=== PATIENT | female | born 1945 | race Caucasian/White ===

== ENCOUNTER 2017-09-15 20:58 | Emergency (ER) | payer MEDICARE, OTHER ==
[~2017-09-15] VITALS: Ht 165.1 cm; Wt 56.7 kg
[~2017-09-15 20:58] MED LIST: AMLO1CAP5 PO; ASPI-605 PO; ATEN-170 PO; ATOR20TA PO; DENO60DI SQ; EVOL140S SQ; LORA-259 PO; NITR0.4T48 SL
--- NOTE | 2017-09-15 21:00 | NUR ---
"MY LT LEG IS WEAK AND SHAKING; MY BLOOD PRESSURE WAS HIGH. TOOK CLONIDINE 0.1MG 45MINUTES AGO"
--- NOTE | 2017-09-15 21:39 | NUR ---
PT TAKEN TO CT
--- NOTE | 2017-09-15 22:14 | NUR ---
RAC #20 IV ACCESS. BLOOD SAMPLE COLLECTED SENT TO LAB
[2017-09-15 22:46] LABS: BASOPHILS % (AUTO) 0.1 % (0.0-2.0); HEMATOCRIT 39 % (33-45); HEMOGLOBIN 13.3 g/dL (11.5-14.8); LYMPHOCYTES # (AUTO) 1.7 /CMM (0.8-4.8); LYMPHOCYTES % (AUTO) 7.1 % (20.0-44.0); MEAN CORPUSCULAR HEMOGLOBIN 31 PG (26.0-33.0); MEAN CORPUSCULAR HGB CONC 34 g/dl (31.0-36.0); MEAN CORPUSCULAR VOLUME 90 fL (82-100); MONOCYTES # (AUTO) 0.5 /CMM (0.1-1.30); MONOCYTES % (AUTO) 2.2 % (2.0-12.0); NEUTROPHILS % (AUTO) 90.6 % (43.0-81.0); PLATELET COUNT (AUTO) 504 /CMM (150-450); RDW COEFFICIENT OF VARIATION 13.9 (11.5-15.0); RED BLOOD CELL COUNT(AUTO) 4.32 MIL/uL (4.0-5.2); WHITE BLOOD COUNT (AUTO) 24.3 K/uL (4.3-11.0)
[2017-09-15 22:56] LABS: APPEARANCE,URINE CLEAR (CLEAR); BILIRUBIN,URINE NEGATIVE (NEGATIVE); BLOOD, URINE NEGATIVE Ery/uL (NEGATIVE); COLOR,URINE YELLOW (YELLOW); KETONES,URINE NEGATIVE (NEGATIVE); LEUKOCYTE ESTERASE ,URINE NEGATIVE (NEGATIVE); NITRITE, URINE NEGATIVE (NEGATIVE); PROTEIN,URINE NEGATIVE (NEGATIVE); UGLUCOSE NEGATIVE (NEGATIVE); UROBILINOGEN,URINE 0.2 EU/dL (0.2)
[2017-09-15 22:57] LABS: CALCIUM, SERUM 9.5 mg/dL (8.5-10.1); CARBON DIOXIDE 27 mmol/L (21-32); CHLORIDE 89 mmol/L (98-107); GLUCOSE 117 mg/dL (74-106); SODIUM SERUM 130 mmol/L (136-145); UREA NITROGEN, BLOOD 22 mg/dL (7-18)
[2017-09-15 22:59] LABS: INR 0.92 (0.87-1.13)
[2017-09-15 23:09] LABS: TROPONIN I < 0.017 ng/mL (0.00-0.056)
--- NOTE | 2017-09-15 23:12 | NUR ---
IV removed. Catheter intact and site benign. Pressure and 4x4 applied to site. No bleeding noted.
--- NOTE | 2017-09-15 23:12 | NUR ---
Patient discharged to home in stable condition. Written and verbal after care instructions given. Patient verbalizes understanding of instruction.
[2017-09-15 23:13] VITALS: BP 122/68
[2017-09-15 23:17] LABS: BAND % (MANUAL) 4 % (0.0-5.0); LYMPHOCYTES % (MANUAL) 7 % (16-48); MONOCYTES % (MANUAL) 2 % (0-11.0); NEUTROPHILS % (MANUAL) 87 (42-76)
== END 2017-09-15 23:19 | disposition home or self-care (01) ==
LOC: ER 20:59
DX: I10 Essential (primary) hypertension (principal); G20 Parkinson's disease; E87.1 Hypo-osmolality and hyponatremia; D72.829 Elevated white blood cell count, unspecified; Z79.82 Long term (current) use of aspirin; Z86.73 Personal history of transient ischemic attack (TIA), and cerebral infarction without residual deficits; Z88.8 Allergy status to other drugs, medicaments and biological substances
CPT/HCPCS: 36415; 70450; 71045; 80048; 81001; 82962; 84484; 85025; 85730; 93005; 99285; A4606; 81000-TC; Z7610

== ENCOUNTER 2018-09-30 11:17 | Inpatient (IN) | payer MEDICARE, OTHER ==
[~2018-09-30] VITALS: Ht 149.9 cm; Wt 59.9 kg
--- NOTE | 2018-09-30 11:20 | NUR ---
AAOX3, BIBRA 102 from home c/o lower abdominal pain x 3 days, also c/o right upper back pain. RR is even and unlabored with NAD noted. Skin is warm and dry. Awaiting MD for eval.
[2018-09-30 12:04] LABS: BASOPHILS # (AUTO) 0.1 /CMM (0.0-0.2); BASOPHILS % (AUTO) 0.4 % (0.0-2.0); EOSINOPHILS % (AUTO) 0.3 % (0.0-6.0); HEMATOCRIT 45 % (33-45); HEMOGLOBIN 14.9 g/dL (11.5-14.8); LYMPHOCYTES # (AUTO) 1.9 /CMM (0.8-4.8); LYMPHOCYTES % (AUTO) 8.1 % (20.0-44.0); MEAN CORPUSCULAR HGB CONC 33 g/dl (31.0-36.0); MEAN CORPUSCULAR VOLUME 93 fL (82-100); MONOCYTES # (AUTO) 1.4 /CMM (0.1-1.30); NEUTROPHILS # (AUTO) 19.7 /CMM (1.8-8.9); NEUTROPHILS % (AUTO) 85.2 % (43.0-81.0); PLATELET COUNT (AUTO) 435 /CMM (150-450); RED BLOOD CELL COUNT(AUTO) 4.81 MIL/uL (4.0-5.2); WHITE BLOOD COUNT (AUTO) 23.1 K/uL (4.3-11.0)
[2018-09-30 12:14] LABS: CALCIUM, SERUM 10.3 mg/dL (8.5-10.1); CARBON DIOXIDE 27 mmol/L (21-32); CHLORIDE 97 mmol/L (98-107); GLUCOSE 104 mg/dL (74-106); SODIUM SERUM 134 mmol/L (136-145); UREA NITROGEN, BLOOD 17 mg/dL (7-18)
[2018-09-30 12:19] LABS: ALANINE AMINOTRANSFERASE 11 U/L (12-78); ALBUMIN 3.7 g/dL (3.4-5.0); ALKALINE PHOSPHATASE 76 U/L (46-116); ASPARTATE AMINOTRANSFERASE 12 U/L (15-37); BILIRUBIN,DIRECT 0.1 mg/dL (0.0-0.2); BILIRUBIN,TOTAL 0.6 mg/dL (0.2-1.0); LIPASE 161 U/L (73-393); TOTAL PROTEIN, SERUM 8.5 g/dL (6.4-8.2)
[2018-09-30 12:21] LABS: APPEARANCE,URINE Clear (CLEAR); BILIRUBIN,URINE Negative (NEGATIVE); BLOOD, URINE Small Ery/uL (NEGATIVE); COLOR,URINE Yellow (YELLOW); KETONES,URINE Negative (NEGATIVE); LEUKOCYTE ESTERASE ,URINE Negative (NEGATIVE); NITRITE, URINE Negative (NEGATIVE); PROTEIN,URINE 30 mg/dl (NEGATIVE); UGLUCOSE Negative (NEGATIVE); UROBILINOGEN,URINE 0.2 EU/dL (0.2)
[2018-09-30 12:43] LABS: BACTERIA,URINE None seen /HPF (None Seen); SQUAMOUS EPITHELIAL CELL,UR Rare /HPF (None Seen); WBC,URINE NONE SEEN /HPF (0-3)
[2018-09-30 12:52] LABS: BAND % (MANUAL) 1 % (0.0-5.0); LYMPHOCYTES % (MANUAL) 9 % (16-48); MONOCYTES % (MANUAL) 1 % (0-11.0); NEUTROPHILS % (MANUAL) 89 (42-76)
--- NOTE | 2018-09-30 12:55 | NUR ---
CALLED NURSING SUP. FOR TELE BED
[2018-09-30] MEDS ORDERED: AZIL40TA PO (13:09)
[2018-09-30] MEDS ORDERED: NORT10CA PO (13:09)
[2018-09-30] MEDS ORDERED: IRBE150T28 PO (13:09)
[2018-09-30] MEDS ORDERED: ATOR10TA PO (13:09)
[2018-09-30] MEDS ORDERED: EZET10TA14 PO (13:09)
[2018-09-30] MEDS ORDERED: BUPR-51 PO (13:09)
[2018-09-30] MEDS ORDERED: SPIR25TA PO (13:09)
[2018-09-30] MEDS ORDERED: AMLO5TAB9 PO (13:09)
[2018-09-30] MEDS ORDERED: MELA3TAB PO (13:09)
[2018-09-30] MEDS ORDERED: LIPA1CAP15 PO (13:09)
[2018-09-30] MEDS ORDERED: CLON1TAB12 PO (13:09)
[2018-09-30] MEDS ORDERED: ZOLP10TA6 PO (13:09)
[2018-09-30] MEDS ORDERED: LINA145C PO (13:09)
[2018-09-30] MEDS ORDERED: CLON0.1T PO (13:09)
[2018-09-30] MEDS ORDERED: CARB-93 PO (13:09)
--- NOTE | 2018-09-30 13:43 | NUR ---
REPORT GIVEN TO SOCORRO RN GOING TO RM 113-1 FOR CINTHIA.
[2018-09-30] MEDS ORDERED: METRONIDAZOLE 500MG/ NS 100ML 500 MG in PREMIX 1 EA IV STA (13:57)
[2018-09-30] MEDS ORDERED: CEFTRIAXONE 1 G in IV D5W 50 ML IV STA (13:57)
[2018-09-30] MEDS ORDERED: CEFTRIAXONE 1GM BAG (ER ONLY) 50 ML IV ONE (14:08)
[2018-09-30] MEDS ORDERED: IV NS 0.9% 1,000 ML BAG IV STA (14:10)
[2018-09-30] MEDS ORDERED: MORPHINE SULFATE INJ 4 MG/ML DISP.SYRIN IV STA (14:10)
[2018-09-30] MEDS ORDERED: ONDANSETRON HCL/PF 4 MG/2 ML VIAL IV STA (14:10)
[2018-09-30] MEDS ORDERED: ACETAMINOPHEN 325 MG TABLET PO PRN (14:30)
[2018-09-30] MEDS ORDERED: clonazePAM 1 MG TABLET PO PRN (14:30)
[2018-09-30] MEDS ORDERED: HYDROCODONE/APAP 5/325MG 1 EACH TABLET PO PRN (14:30)
[2018-09-30] MEDS ORDERED: NITROGLYCERIN 0.4 MG/TAB BOTTLE SL PRN (14:30)
[2018-09-30] MEDS ORDERED: CLONIDINE HCL 0.1 MG TABLET PO PRN (14:30)
[2018-09-30] MEDS ORDERED: ZOLPIDEM TARTRATE 5 MG TABLET PO PRN (14:30)
[2018-09-30] MEDS ORDERED: Medication Not On Formulary EA (Denosumab (Prolia) 60 MG) SQ SCH (14:30)
[2018-09-30] MEDS ORDERED: MAGNESIUM HYDROXIDE 30 ML UDC PO PRN (14:30)
[2018-09-30] MEDS ORDERED: MAG HYDROX/AL HYDROX/SIMETH 30 ML UDC PO PRN (14:30)
[2018-09-30] MEDS ORDERED: ONDANSETRON HCL/PF 4 MG/2 ML VIAL IVP PRN (14:30)
[2018-09-30] MEDS ORDERED: Z GUARD REMEDY 2 OZ OINT TP PRN (14:30)
--- NOTE | 2018-09-30 14:30 | NUR ---
MS SET KEY DRIVER NOTES RECEIVED PT FROM ER TO ROOM 113-1 VIA WHEELCHAIR.ALERT.ORIENTED X4,TONGAN SPEAKING.UNDERSTANDS ANGUILLAN.CAN AMBULATE WELL WITH ONE PERSON ASSISTANCE.ON ROOM AIR,TOLERATING WELL.NO SOB AND ACUTE DISTRESS NOTED.IV LINE IS ON RIGHT FA G20,SITE LOOKS CLEAN,DRY AND INTACT.NO INFILTRATION NOTED.VITAL SIGNS CHECKED AND RECORDED.SKIN ASSESSMENT IS DONE AND PICTURE HAS TAKEN.SAFETY IS MAINTAINED AT ALL TIMES.CALL LIGHT IS WITHIN REACH.WILL CONTINUE TO MONITOR THE PT CLOSELY.
[2018-09-30 16:00] VITALS: BP 160/85
[2018-09-30] MEDS: IV NS 0.9% 1,000 ML IV SCH ×2 (16:00→22:39)
[2018-09-30] MEDS: CARBIDOPA/LEVODOPA 25/100 MG 1 UDTAB PO SCH (17:56)
[2018-09-30] MEDS: LIPASE/PROTEASE/AMYLASE 1 EACH CAPSULE.DR PO SCH (17:56)
[2018-09-30] MEDS: ATENOLOL 25 MG TABLET PO SCH (17:56)
--- NOTE | 2018-09-30 18:37 | NUR ---
MS RN CLOSING NOTES PT IS LYING ON BED.ON NPO.AMBULATED WELL WITH ONE PERSON ASSISTANCE.NO SIGNIFICANT CHANGES NOTED IN THE SHIFT.ALL THE DUE MEDS ARE GIVEN.WILL ENDORSE TO NEXT SHIFT RN FOR CINTHIA.
[2018-09-30 20:00] VITALS: BP 129/73
[2018-09-30] MEDS: NORTRIPTYLINE HCL 10 MG CAPSULE PO SCH (21:46)
[2018-09-30] MEDS: ZOLPIDEM TARTRATE 10 MG TABLET PO SCH (21:47)
[2018-09-30] MEDS ORDERED: Medication Not On Formulary EA (Melatonin 3 MG) PO SCH (22:00)
[2018-09-30] MEDS ORDERED: ATORVASTATIN 10 MG TABLET PO SCH (22:00)
[2018-10-01 04:00] VITALS: BP 141/71
[2018-10-01] MEDS: IV NS 0.9% 1,000 ML IV SCH (06:20)
[2018-10-01 07:52] LABS: BASOPHILS % (AUTO) 0.2 % (0.0-2.0); EOSINOPHILS % (AUTO) 0.3 % (0.0-6.0); HEMATOCRIT 40 % (33-45); HEMOGLOBIN 13.2 g/dL (11.5-14.8); LYMPHOCYTES # (AUTO) 1.8 /CMM (0.8-4.8); LYMPHOCYTES % (AUTO) 9.7 % (20.0-44.0); MEAN CORPUSCULAR HGB CONC 33 g/dl (31.0-36.0); MEAN CORPUSCULAR VOLUME 93 fL (82-100); MONOCYTES # (AUTO) 1.1 /CMM (0.1-1.30); NEUTROPHILS # (AUTO) 15.6 /CMM (1.8-8.9); NEUTROPHILS % (AUTO) 83.8 % (43.0-81.0); PLATELET COUNT (AUTO) 348 /CMM (150-450); RED BLOOD CELL COUNT(AUTO) 4.26 MIL/uL (4.0-5.2); WHITE BLOOD COUNT (AUTO) 18.7 K/uL (4.3-11.0)
[2018-10-01 08:00] VITALS: BP 129/70
[2018-10-01] MEDS: LIPASE/PROTEASE/AMYLASE 1 EACH CAPSULE.DR PO SCH ×3 (08:27→18:00)
[2018-10-01] MEDS: ATENOLOL 25 MG TABLET PO SCH ×3 (08:28→17:00)
[2018-10-01] MEDS: CARBIDOPA/LEVODOPA 25/100 MG 1 UDTAB PO SCH ×2 (08:28→17:00)
[2018-10-01 08:30] LABS: CALCIUM, SERUM 8.6 mg/dL (8.5-10.1); CARBON DIOXIDE 23 mmol/L (21-32); CHLORIDE 106 mmol/L (98-107); CREATININE 0.7 mg/dL (0.6-1.3); GLUCOSE 86 mg/dL (74-106); MAGNESIUM 2.2 mg/dL (1.8-2.4); PHOSPHORUS 2.4 mg/dL (2.5-4.9); POTASSIUM 4.1 mmol/L (3.5-5.1); SODIUM SERUM 140 mmol/L (136-145); UREA NITROGEN, BLOOD 12 mg/dL (7-18)
[2018-10-01] MEDS: EZETIMIBE 10 MG TABLET PO SCH ×3 (08:31→21:51)
[2018-10-01] MEDS: SPIRONOLACTONE 25 MG TABLET PO SCH (08:31)
[2018-10-01] MEDS: BUPROPION XL 150 MG TAB.ER.24 PO SCH ×2 (08:31→09:00)
[2018-10-01] MEDS: AMLODIPINE BESYLATE 5 MG TABLET PO SCH (08:33)
[2018-10-01] MEDS: ASPIRIN EC 81 MG TABLET.DR PO SCH ×2 (08:33→09:05)
[2018-10-01] MEDS ORDERED: Medication Not On Formulary EA (Linaclotide (Linzess) 145 MCG) PO SCH (09:00)
[2018-10-01] MEDS ORDERED: IRBESARTAN (150MG) 150 MG TABLET PO SCH (09:00)
[2018-10-01 09:07] LABS: CHOLESTEROL 200 mg/dL (<200); HDL CHOLESTEROL 55 mg/dL (40-60); LDL 129 mg/dL (0-99); TRIGLYCERIDES 84 mg/dL (30-150)
[2018-10-01] MEDS: LOSARTAN POTASSIUM 50 MG TABLET PO SCH (11:33)
[2018-10-01] MEDS ORDERED: K PHOS NEUTRAL 250 MG TABLET PO ONE (12:00)
[2018-10-01 16:00] VITALS: BP 148/80
[2018-10-01] MEDS: IV NS 0.9% 1,000 ML IV PRN (17:21)
--- NOTE | 2018-10-01 19:30 | NUR ---
RN M/S NOTE PATIENT PRESENTS AOX3, SITTING IN CHAIR, ON RA, NO S/SX OF CARDIAC OR RESPIRATORY DISTRESS NOTED, SKIN KEPT CLEAN AND DRY, NPO, PT REFUSING IV PLACEMENT, INSTRUCTED ON RISKS AND BENEFITS, PT INSISTENT ON EATING/DRINKING, INSTRUCTED ON ORDERS, CONTINUES TO NEED REINFORCEMENT ON EDUCATION. SAFETY MAINTAINED AT ALL TIMES, BED IN LOW LOCKED POSITION, CALL LIGHT WITHIN REACH WILL CONTINUE TO MONITOR FOR ANY CHANGES.
[2018-10-01 20:00] VITALS: BP 157/85
--- NOTE | 2018-10-01 20:51 | NUR ---
RN M/S NOTE PT ALLOWED IV REINSERTION #24G PLACED IN LEFT HAND, PATENT FLUSHING WELL, DRESSING SECURED.
[2018-10-01] MEDS: NORTRIPTYLINE HCL 10 MG CAPSULE PO SCH (21:50)
[2018-10-01] MEDS: ZOLPIDEM TARTRATE 10 MG TABLET PO SCH (21:50)
[2018-10-02 04:00] VITALS: BP 160/90
[2018-10-02] MEDS: IV NS 0.9% 1,000 ML IV PRN (05:02)
--- NOTE | 2018-10-02 06:39 | NUR ---
RN M/S NOTE PT BP ELEVATED 177/98 AFTER EXERTION, MESSAGE TO ONCALL CONCERNING ELEVATED BP AND NPO STATUS UNABLE TO GIVE CLONIDINE PRN, GIVEN ORDER FOR LABETOLOL 5MG IV PUSH X1, WHEN RECHECKED AFTER REST FROM EXERTION FROM AMBULATING TO RESTROOM BP 160/90, RN WILL GIVE MEDICATION AND CONTINUE TO MONITOR BP.
[2018-10-02] MEDS ORDERED: LABETALOL HCL IV 100MG VIAL IV ONE (07:00)
[2018-10-02 07:35] LABS: BASOPHILS # (AUTO) 0.1 /CMM (0.0-0.2); BASOPHILS % (AUTO) 0.5 % (0.0-2.0); EOSINOPHILS % (AUTO) 0.2 % (0.0-6.0); HEMATOCRIT 43 % (33-45); HEMOGLOBIN 14.3 g/dL (11.5-14.8); LYMPHOCYTES # (AUTO) 1.7 /CMM (0.8-4.8); MEAN CORPUSCULAR HGB CONC 34 g/dl (31.0-36.0); MEAN CORPUSCULAR VOLUME 92 fL (82-100); MONOCYTES # (AUTO) 0.9 /CMM (0.1-1.30); MONOCYTES % (AUTO) 5.4 % (2.0-12.0); NEUTROPHILS # (AUTO) 14.7 /CMM (1.8-8.9); NEUTROPHILS % (AUTO) 83.9 % (43.0-81.0); PLATELET COUNT (AUTO) 367 /CMM (150-450); RED BLOOD CELL COUNT(AUTO) 4.62 MIL/uL (4.0-5.2); WHITE BLOOD COUNT (AUTO) 17.5 K/uL (4.3-11.0)
[2018-10-02 07:54] LABS: CALCIUM, SERUM 8.6 mg/dL (8.5-10.1); CARBON DIOXIDE 21 mmol/L (21-32); CHLORIDE 106 mmol/L (98-107); CREATININE 0.8 mg/dL (0.6-1.3); GLUCOSE 69 mg/dL (74-106); PHOSPHORUS 2.3 mg/dL (2.5-4.9); SODIUM SERUM 141 mmol/L (136-145); UREA NITROGEN, BLOOD 13 mg/dL (7-18)
--- NOTE | 2018-10-02 07:54 | NUR ---
MS RN OPENING NOTES RECEIVED PATIENT IN STABLE CONDITION. IN NO APPARENT DISTRESS. BEDSIDE RAILS ARE UPX2. BED IS LOCKED AND LOWERED. CALL LIGHT IS WITHIN REACH. IV LINE IS INTACT AND PATENT. WILL CONTINUE TO MONITOR PATIENT.
[2018-10-02 08:00] VITALS: BP 178/99
[2018-10-02] MEDS: LIPASE/PROTEASE/AMYLASE 1 EACH CAPSULE.DR PO SCH ×3 (08:00→17:02)
--- NOTE | 2018-10-02 08:39 | NUR ---
MS NURSE,Left message to answing service re; patient's b/p 178/99 waiting for retirning call back
[2018-10-02] MEDS: ASPIRIN EC 81 MG TABLET.DR PO SCH (09:00)
[2018-10-02] MEDS: CARBIDOPA/LEVODOPA 25/100 MG 1 UDTAB PO SCH ×2 (09:00→17:02)
--- NOTE | 2018-10-02 10:00 | NUR ---
PATIENT'S BP IS 178/99. INFORMED DR. STUBBS. AWAITING ORDERS
[2018-10-02] MEDS: SPIRONOLACTONE 25 MG TABLET PO SCH (11:43)
[2018-10-02] MEDS: AMLODIPINE BESYLATE 5 MG TABLET PO SCH (11:43)
[2018-10-02] MEDS: LOSARTAN POTASSIUM 50 MG TABLET PO SCH (11:43)
[2018-10-02] MEDS: ATENOLOL 25 MG TABLET PO SCH ×2 (11:48→17:03)
--- NOTE | 2018-10-02 12:21 | NUR ---
LABETALOL NON ADMINISTERED AT 0700. SPOKE TO DR STUBBS REGARDING PATIENTS HIGH BLOOD PRESSURE. PATIENT WAS STARTED ON CLEAR LIQUIDS DIET. ADMINISTERED HOME BLOOD PRESSURE MEDICATION.
[2018-10-02] MEDS ORDERED: K PHOS NEUTRAL 250 MG TABLET PO ONE (15:30)
[2018-10-02 16:00] VITALS: BP 154/88
[2018-10-02 16:25] VITALS: BP 154/88
--- NOTE | 2018-10-02 18:42 | NUR ---
MS RN CLOSING NOTES PATIENT IS IN STABLE CONDITION. IN NO APPARENT DISTRESS. BEDSIDE RAILS ARE UPX2. BED IS LOCKED AND LOWERED. CALL LIGHT IS WITHIN REACH. IV LINE IS INTACT AND PATENT. ALL NEEDS WERE MET. WILL ENDORSE CARE TO TYPIST NURSE FOR CINTHIA.
--- NOTE | 2018-10-02 19:10 | NUR ---
RN M/S NOTE PATIENT PRESENTS AOX3, RESTING WITH HOB ELEVATED, ON RA, NO S/SX OF CARDIAC OR RESPIRATORY DISTRESS NOTED, SKIN KEPT CLEAN AND DRY, NPO, LEFT HAND #24G PATENT AND FLUSHING PT REFUSING IV FLUIDS AT THIS TIME, INSTRUCTED ON RISKS AND BENEFITS, CONTINUES TO NEED REINFORCEMENT ON EDUCATION. SAFETY MAINTAINED AT ALL TIMES, BED IN LOW LOCKED POSITION, CALL LIGHT WITHIN REACH WILL CONTINUE TO MONITOR FOR ANY CHANGES.
[2018-10-02 20:00] VITALS: BP 143/73
[2018-10-02] MEDS: CEFTRIAXONE 1 G in IV D5W 50 ML IV SCH (20:08)
[2018-10-02] MEDS: METRONIDAZOLE 500MG/ NS 100ML 500 MG in PREMIX 1 EA IV SCH (21:24)
[2018-10-02] MEDS: EZETIMIBE 10 MG TABLET PO SCH (21:24)
[2018-10-02] MEDS: NORTRIPTYLINE HCL 10 MG CAPSULE PO SCH (21:24)
[2018-10-02] MEDS: ZOLPIDEM TARTRATE 10 MG TABLET PO SCH (21:24)
[2018-10-03 04:00] VITALS: BP 153/83
[2018-10-03] MEDS: METRONIDAZOLE 500MG/ NS 100ML 500 MG in PREMIX 1 EA IV SCH ×3 (05:34→21:33)
--- NOTE | 2018-10-03 07:20 | NUR ---
MS RN OPENING NOTES RECEIVED REPORT FROM PM NURSE. PATIENT IN BED.AXOX4. IN NO APPARENT DISTRESS. NO PAIN NOTED.BEDSIDE RAILS ARE UPX2. BED IS LOCKED AND LOW POSITION. CALL LIGHT IS WITHIN REACH. IV LINE IS INTACT AND PATENT. WILL CONTINUE TO MONITOR .
[2018-10-03 08:00] VITALS: BP 149/87
[2018-10-03] MEDS: CARBIDOPA/LEVODOPA 25/100 MG 1 UDTAB PO SCH ×2 (08:32→18:00)
[2018-10-03] MEDS: SPIRONOLACTONE 25 MG TABLET PO SCH (08:32)
[2018-10-03] MEDS: ASPIRIN EC 81 MG TABLET.DR PO SCH (08:32)
[2018-10-03] MEDS: LIPASE/PROTEASE/AMYLASE 1 EACH CAPSULE.DR PO SCH ×3 (08:32→18:00)
[2018-10-03] MEDS: AMLODIPINE BESYLATE 5 MG TABLET PO SCH (08:34)
[2018-10-03] MEDS: LOSARTAN POTASSIUM 50 MG TABLET PO SCH (08:34)
[2018-10-03] MEDS: ATENOLOL 25 MG TABLET PO SCH ×2 (08:36→18:01)
[2018-10-03] MEDS ORDERED: K PHOS NEUTRAL 250 MG TABLET PO ONE (12:00)
[2018-10-03 16:00] VITALS: BP 136/82
--- NOTE | 2018-10-03 19:30 | NUR ---
MS RN CLOSING NOTES PATIENT IN BED.AXOX4. IN NO APPARENT DISTRESS. NO PAIN NOTED.BEDSIDE RAILS ARE UPX2. BED IS LOCKED AND LOW POSITION. CALL LIGHT IS WITHIN REACH. IV LINE IS INTACT AND PATENT.REFUSED IVF THROUGH OUT SHIFT.EXPLAINED RISK AND BENEFIT.STILL REFUSING.SEEN BY IN THE MORNING.UPDATED ABOUT CONDITION.WILL ENDORSE TO PM NURSE FOR CINTHIA.
--- NOTE | 2018-10-03 19:50 | NUR ---
MS RN NOTE: PATIENT RESTING IN BED, NO ACUTE DISTRESS NOTED. BREATHING EVEN AND UNLABORED, NO SOB NOTED. IV LEFT HAND IN PLACE. PATIENT DENIES ABDOMINAL PAIN, OR NAUSEA/VOMITING AT THIS TIME. BED LOCKED AND IN LOWEST POSITION, CALL LIGHT IN REACH. WILL CONTINUE TO MONITOR.
[2018-10-03 20:00] VITALS: BP 147/76
[2018-10-03] MEDS: CEFTRIAXONE 1 G in IV D5W 50 ML IV SCH (20:55)
[2018-10-03] MEDS: NORTRIPTYLINE HCL 10 MG CAPSULE PO SCH (22:32)
[2018-10-03] MEDS: ZOLPIDEM TARTRATE 10 MG TABLET PO SCH (22:32)
[2018-10-03] MEDS: EZETIMIBE 10 MG TABLET PO SCH (22:32)
--- NOTE | 2018-10-03 22:45 | NUR ---
MS RN NOTE: PATIENT SCHEDULED AMBIEN 10MG 1 TAB ORAL GIVEN PER MD ORDER. WILL CONTINUE TO MONITOR.
[2018-10-04] MEDS: METRONIDAZOLE 500MG/ NS 100ML 500 MG in PREMIX 1 EA IV SCH ×2 (05:12→12:19)
--- NOTE | 2018-10-04 06:15 | NUR ---
MS RN NOTE: PATIENT RESTING IN BED, NO ACUTE DISTRESS NOTED. BREATHING EVEN AND UNLABORED, NO SOB NOTED. IV LEFT HAND IN PLACE. BED LOCKED AND IN LOWEST POSITION, CALL LIGHT IN REACH. WILL ENDORSE TO DAY NURSE TO CONTINUE WITH PLAN OF CARE.
[2018-10-04 06:29] VITALS: BP 134/73
[2018-10-04 07:17] LABS: BASOPHILS % (AUTO) 0.2 % (0.0-2.0); EOSINOPHILS % (AUTO) 0.2 % (0.0-6.0); HEMATOCRIT 41 % (33-45); HEMOGLOBIN 13.8 g/dL (11.5-14.8); LYMPHOCYTES # (AUTO) 2.2 /CMM (0.8-4.8); LYMPHOCYTES % (AUTO) 13.8 % (20.0-44.0); MEAN CORPUSCULAR HGB CONC 34 g/dl (31.0-36.0); MEAN CORPUSCULAR VOLUME 93 fL (82-100); MONOCYTES # (AUTO) 1.5 /CMM (0.1-1.30); MONOCYTES % (AUTO) 9.4 % (2.0-12.0); NEUTROPHILS # (AUTO) 12.1 /CMM (1.8-8.9); NEUTROPHILS % (AUTO) 76.4 % (43.0-81.0); PLATELET COUNT (AUTO) 414 /CMM (150-450); RED BLOOD CELL COUNT(AUTO) 4.45 MIL/uL (4.0-5.2); WHITE BLOOD COUNT (AUTO) 15.9 K/uL (4.3-11.0)
[2018-10-04 07:32] LABS: CALCIUM, SERUM 8.5 mg/dL (8.5-10.1); CARBON DIOXIDE 25 mmol/L (21-32); CHLORIDE 105 mmol/L (98-107); CREATININE 0.8 mg/dL (0.6-1.3); GLUCOSE 102 mg/dL (74-106); PHOSPHORUS 2.2 mg/dL (2.5-4.9); POTASSIUM 3.5 mmol/L (3.5-5.1); SODIUM SERUM 141 mmol/L (136-145); UREA NITROGEN, BLOOD 11 mg/dL (7-18)
[2018-10-04 08:00] VITALS: BP 147/83
[2018-10-04] MEDS: LIPASE/PROTEASE/AMYLASE 1 EACH CAPSULE.DR PO SCH ×2 (08:00→13:00)
[2018-10-04] MEDS: SPIRONOLACTONE 25 MG TABLET PO SCH (09:33)
[2018-10-04] MEDS: LOSARTAN POTASSIUM 50 MG TABLET PO SCH (09:33)
[2018-10-04] MEDS: ASPIRIN EC 81 MG TABLET.DR PO SCH (09:33)
[2018-10-04] MEDS: AMLODIPINE BESYLATE 5 MG TABLET PO SCH (09:34)
[2018-10-04] MEDS: CARBIDOPA/LEVODOPA 25/100 MG 1 UDTAB PO SCH (09:34)
[2018-10-04] MEDS: ATENOLOL 25 MG TABLET PO SCH (09:35)
[2018-10-04 10:00] VITALS: BP 140/68
[2018-10-04] MEDS ORDERED: METR500T PO (11:00)
[2018-10-04] MEDS ORDERED: AMOX500T2 PO (11:00)
[2018-10-04] MEDS ORDERED: NA PHOS,M-B/NA PHOS,DI-BA 1 EA ENEMA RC ONE (11:15)
[2018-10-04] MEDS ORDERED: K PHOS NEUTRAL 250 MG TABLET PO ONE (13:30)
--- NOTE | 2018-10-04 15:30 | NUR ---
gave pt discharge instructions with new RX, gave pt teachings regarding new medication and any side effects that may occur with discharge instructions. no pain, no sob not in distress. picked up by , assisted to personal car via w/c. all needs met.
== END 2018-10-04 15:24 | disposition home or self-care (01) | DRG 392 ==
LOC: ER 11:22 → TELE1 13:14 → MEDSG1 14:47
PROVIDERS: ADMIT Family Medicine; ATTEND Family Medicine
DX: K57.20 Diverticulitis of large intestine with perforation and abscess without bleeding (principal); E87.1 Hypo-osmolality and hyponatremia; I25.10 Atherosclerotic heart disease of native coronary artery without angina pectoris; Z86.73 Personal history of transient ischemic attack (TIA), and cerebral infarction without residual deficits; E83.52 Hypercalcemia; E78.5 Hyperlipidemia, unspecified; E86.1 Hypovolemia; I10 Essential (primary) hypertension; K76.0 Fatty (change of) liver, not elsewhere classified; Z79.82 Long term (current) use of aspirin; Z95.5 Presence of coronary angioplasty implant and graft; D75.1 Secondary polycythemia; D72.829 Elevated white blood cell count, unspecified; G20 Parkinson's disease; F02.80 Dementia in other diseases classified elsewhere, unspecified severity, without behavioral disturbance, psychotic disturbance, mood disturbance, and anxiety
CPT/HCPCS: 36415; 71045-TC; 80048-TC; 80061-TC; 80076-TC; 81000-TC; 83690-TC; 83735-TC; 84100-TC; 85025-TC; 87081-TC; A4216; G0378; J0696; J3490; J7030; J7060

== ENCOUNTER 2018-11-06 20:38 | Inpatient (IN) | payer MEDICARE, OTHER ==
[~2018-11-06] VITALS: Ht 149.9 cm; Wt 58.6 kg
[~2018-11-06 20:38] MED LIST changes: -AMLO1CAP5 PO; +AMLO5TAB9 PO; +AMOX500T2 PO; -ATOR20TA PO; +CARB-93 PO; +CLON0.1T PO; -EVOL140S SQ; +EZET10TA14 PO; +IRBE150T28 PO; +LIPA1CAP15 PO; -LORA-259 PO; +MELA3TAB PO; +METR500T PO; +NORT10CA PO; +SPIR25TA PO; +ZOLP10TA6 PO
--- NOTE | 2018-11-06 20:47 | NUR ---
PT BIBRA FROM HOME FOR EPIGASTRIC PAIN; PT AAOX4, PT AMBULATORY, VSS, NAD NOTED, PENDING MD EDWARDS
[2018-11-06 21:04] LABS: BASOPHILS # (AUTO) 0.1 /CMM (0.0-0.2); BASOPHILS % (AUTO) 0.5 % (0.0-2.0); EOSINOPHILS % (AUTO) 0.4 % (0.0-6.0); HEMATOCRIT 41 % (33-45); HEMOGLOBIN 13.8 g/dL (11.5-14.8); LYMPHOCYTES # (AUTO) 2.6 /CMM (0.8-4.8); LYMPHOCYTES % (AUTO) 18.2 % (20.0-44.0); MEAN CORPUSCULAR HGB CONC 34 g/dl (31.0-36.0); MEAN CORPUSCULAR VOLUME 92 fL (82-100); MONOCYTES # (AUTO) 1.4 /CMM (0.1-1.30); MONOCYTES % (AUTO) 9.9 % (2.0-12.0); NEUTROPHILS # (AUTO) 10.1 /CMM (1.8-8.9); PLATELET COUNT (AUTO) 467 /CMM (150-450); WHITE BLOOD COUNT (AUTO) 14.1 K/uL (4.3-11.0)
[2018-11-06 21:20] LABS: ALANINE AMINOTRANSFERASE 19 U/L (12-78); ALBUMIN 3.6 g/dL (3.4-5.0); ALKALINE PHOSPHATASE 72 U/L (46-116); ASPARTATE AMINOTRANSFERASE 15 U/L (15-37); BILIRUBIN,DIRECT 0.1 mg/dL (0.0-0.2); BILIRUBIN,TOTAL 0.3 mg/dL (0.2-1.0); CALCIUM, SERUM 9.1 mg/dL (8.5-10.1); CARBON DIOXIDE 26 mmol/L (21-32); CHLORIDE 96 mmol/L (98-107); CREATININE 0.8 mg/dL (0.6-1.3); GLUCOSE 107 mg/dL (74-106); LIPASE 193 U/L (73-393); POTASSIUM 4.5 mmol/L (3.5-5.1); SODIUM SERUM 130 mmol/L (136-145); TOTAL PROTEIN, SERUM 7.5 g/dL (6.4-8.2); UREA NITROGEN, BLOOD 14 mg/dL (7-18)
[2018-11-06 21:38] LABS: APPEARANCE,URINE Clear (CLEAR); BILIRUBIN,URINE Negative (NEGATIVE); BLOOD, URINE Trace-intact Ery/uL (NEGATIVE); COLOR,URINE Yellow (YELLOW); KETONES,URINE Negative (NEGATIVE); LEUKOCYTE ESTERASE ,URINE Negative (NEGATIVE); NITRITE, URINE Negative (NEGATIVE); PH,URINE 8.5 (5.0-8.0); PROTEIN,URINE Negative (NEGATIVE); UGLUCOSE Negative (NEGATIVE); UROBILINOGEN,URINE 0.2 EU/dL (0.2)
--- NOTE | 2018-11-06 22:27 | NUR ---
CALLED MA[facility]AD TO HAVE A CT READ
[2018-11-06 23:00] LABS: BACTERIA,URINE None seen /HPF (None Seen); RBC,URINE 0-2 /HPF (0-2); SQUAMOUS EPITHELIAL CELL,UR Few /HPF (None Seen); WBC,URINE 0-2 /HPF (0-3)
[2018-11-06] MEDS ORDERED: PIPERACILLIN /TAZOBACTAM 3.375 G in IV D5W 50 ML IV ONE (23:30)
[2018-11-06] MEDS ORDERED: PIPERACILLIN /TAZOBACTAM 3.375 G VIAL IV ONE (23:31)
--- NOTE | 2018-11-06 23:35 | NUR ---
MS BED 307-1 GIVEN
[2018-11-06] MEDS ORDERED: HYDROMORPHONE 1 MG/1 ML DISP.SYRIN ONE (23:57)
[2018-11-07] MEDS ORDERED: HYDROMORPHONE INJ 0.5 MG/0.5 ML SYRINGE IV PRN
--- NOTE | 2018-11-07 00:39 | NUR ---
CALLED FOR REPORT, NURSE ON BREAK AT THIS TIME, WILL CALL BACK
--- NOTE | 2018-11-07 00:46 | NUR ---
REPORT GIVEN TO TOMMY ESPITIA FOR CINTHIA; PT WILL BE TRANSPORTED TO [facility] VIA W/C
[2018-11-07 00:55] VITALS: BP 133/77
--- NOTE | 2018-11-07 01:00 | NUR ---
MS WHEAT BUYER NOTES Admitted a 72YO female patient for diverticulitis. Patient came to unit via gurney, alert, oriented x 4. Breathing even and unlabored. Not in any distress. No complaints at the moment. IV access on right hand g#22 intact and patent. V/S taken and recorded. Patient denies smoking, drinking and recreational drug use. Skin assessment done, no skin issues. Oriented to call light- placed within easy reach. Bed in lowest, locked position. Will continue to monitor accordingly
[2018-11-07] MEDS ORDERED: ONDANSETRON HCL/PF 4 MG/2 ML VIAL IVP PRN (01:30)
[2018-11-07] MEDS ORDERED: NITROGLYCERIN 0.4 MG/TAB BOTTLE SL PRN (01:30)
[2018-11-07] MEDS ORDERED: MAG HYDROX/AL HYDROX/SIMETH 30 ML UDC PO PRN (01:30)
[2018-11-07] MEDS ORDERED: HYDROCODONE/APAP 5/325MG 1 EACH TABLET PO PRN (01:30)
[2018-11-07] MEDS ORDERED: Medication Not On Formulary EA (Denosumab (Prolia) 60 MG) SQ SCH (01:30)
[2018-11-07] MEDS ORDERED: CLONIDINE HCL 0.1 MG TABLET PO PRN (01:30)
[2018-11-07] MEDS ORDERED: ACETAMINOPHEN 325 MG TABLET PO PRN (01:30)
[2018-11-07] MEDS ORDERED: MAGNESIUM HYDROXIDE 30 ML UDC PO PRN (01:30)
[2018-11-07] MEDS ORDERED: Z GUARD REMEDY 2 OZ OINT TP PRN (01:30)
[2018-11-07] MEDS ORDERED: MORPHINE SULFATE INJ 2 MG/ML DISP.SYRIN IV PRN (01:30)
[2018-11-07] MEDS: IV NS 0.9% 1,000 ML IV PRN (02:13)
[2018-11-07] MEDS ORDERED: PIPERACILLIN /TAZOBACTAM 3.375 G in IV D5W 50 ML IV SCH (06:00)
[2018-11-07 06:26] LABS: BASOPHILS % (AUTO) 0.3 % (0.0-2.0); EOSINOPHILS % (AUTO) 0.3 % (0.0-6.0); HEMATOCRIT 41 % (33-45); HEMOGLOBIN 13.9 g/dL (11.5-14.8); LYMPHOCYTES # (AUTO) 2.3 /CMM (0.8-4.8); LYMPHOCYTES % (AUTO) 16.8 % (20.0-44.0); MEAN CORPUSCULAR HGB CONC 34 g/dl (31.0-36.0); MEAN CORPUSCULAR VOLUME 91 fL (82-100); MONOCYTES # (AUTO) 1.3 /CMM (0.1-1.30); MONOCYTES % (AUTO) 9.7 % (2.0-12.0); NEUTROPHILS # (AUTO) 9.9 /CMM (1.8-8.9); NEUTROPHILS % (AUTO) 72.9 % (43.0-81.0); PLATELET COUNT (AUTO) 491 /CMM (150-450); RED BLOOD CELL COUNT(AUTO) 4.48 MIL/uL (4.0-5.2); WHITE BLOOD COUNT (AUTO) 13.6 K/uL (4.3-11.0)
[2018-11-07 06:49] LABS: CALCIUM, SERUM 9.1 mg/dL (8.5-10.1); CARBON DIOXIDE 25 mmol/L (21-32); CHLORIDE 99 mmol/L (98-107); CREATININE 0.9 mg/dL (0.6-1.3); GLUCOSE 94 mg/dL (74-106); MAGNESIUM 2.6 mg/dL (1.8-2.4); POTASSIUM 4.3 mmol/L (3.5-5.1); SODIUM SERUM 138 mmol/L (136-145); UREA NITROGEN, BLOOD 9 mg/dL (7-18)
--- NOTE | 2018-11-07 07:01 | NUR ---
MS RN CLOSING NOTES Patient in bed, alert, oriented x 4. Breathing even and unlabored. Not in any distress, on room air. Peripheral IV infusing at 75mL/hr. No complaints at this time. All needs attended to. Safety measures in place. Will endorse CINTHIA to oncoming RN
[2018-11-07 07:04] LABS: CHOLESTEROL 233 mg/dL (<200); HDL CHOLESTEROL 59 mg/dL (40-60); LDL 161 mg/dL (0-99); THYROID STIMULATING HORMONE 3.984 uIU/mL (0.358-3.74); TRIGLYCERIDES 105 mg/dL (30-150)
--- NOTE | 2018-11-07 07:30 | NUR ---
RN MS NOTES PT IN BED, AWAKE, ALERT AND ORIENTED, WITH COMPLAINT OF ABDOMINAL PAIN BUT DOES NOT WANT ANY PAIN MED AT THIS TIME, NO NAUSEA OR VOMITING, IV FLUIDS INFUSING WELL, CALL LIGHT WITHIN REACH.
[2018-11-07 08:00] VITALS: BP 128/73
[2018-11-07] MEDS: ATENOLOL 25 MG TABLET PO SCH ×2 (09:00→17:00)
[2018-11-07] MEDS ORDERED: IRBESARTAN (150MG) 150 MG TABLET PO SCH (09:00)
[2018-11-07] MEDS: AMLODIPINE BESYLATE 5 MG TABLET PO SCH (09:00)
[2018-11-07] MEDS: CARBIDOPA/LEVODOPA 25/100 MG 1 UDTAB PO SCH ×3 (09:00→17:09)
[2018-11-07] MEDS: EZETIMIBE 10 MG TABLET PO SCH (09:00)
[2018-11-07] MEDS: PIPERACILLIN /TAZOBACTAM 3.375 G in IV D5W 100 ML IV SCH ×2 (10:39→17:09)
--- NOTE | 2018-11-07 11:00 | NUR ---
RN MS NOTES PT IN BED, AWAKE, ALERT AND ORIENTED, PAIN MEDICATION GIVEN FOR PAIN MANAGEMENT, NOT IN DISTRESS, SEEN AND EXAMINED BY DR. STUBBS, PLAN OF CARE DISCUSSED WITH PT, VERBALIZED UNDERSTANDING, PER MD OK TO BE NPO WITH MEDS LONG PT TOLERATES IT, CALL LIGHT WITHIN REACH, WILL CONTINUE TO MONITOR.
[2018-11-07] MEDS: LIPASE/PROTEASE/AMYLASE 1 EACH CAPSULE.DR PO SCH ×2 (13:00→17:18)
[2018-11-07 16:00] VITALS: BP 130/80
--- NOTE | 2018-11-07 17:20 | NUR ---
RN MS NOTES PANCREAZE MED NOT GIVEN, MED TO BE GIVEN WITH FOOD AND PT IS NPO.
--- NOTE | 2018-11-07 18:45 | NUR ---
RN MS NOTES PT IN BED, AWAKE, ALERT AND ORIENTED, NO COMPLAINT OF PAIN AT THIS TIME, RESPIRATIONS NORMAL, VISITED BY FAMILY, IV FLUIDS INFUSING WELL, ABLE TO AMBULATE WITH ALONG THE HALLWAY THIS AFTERNOON, WITH SLOW AND STEADY GAIT, NO EPISODE OF N/V OR DIARRHEA, PM CARE PROVIDED, ASSISTED TO BATHROOM NEEDED, ALL NEEDS ATTENDED.
--- NOTE | 2018-11-07 19:15 | NUR ---
MS RN OPENING NOTES Received patient in bed, alert, oriented x 4. Breathing even and unlabored. Not in any distress. No complaints at this time. Peripheral IV infusing at 75mL/hr. Call light within reach. Bed in low, locked position. Will continue to monitor accordingly
[2018-11-07 20:00] VITALS: BP 148/79
[2018-11-07 20:22] VITALS: BP 148/79
[2018-11-07] MEDS ORDERED: Medication Not On Formulary EA (Melatonin 3 MG) PO SCH (22:00)
[2018-11-07] MEDS: NORTRIPTYLINE HCL 10 MG CAPSULE PO SCH (22:00)
[2018-11-07] MEDS: ZOLPIDEM TARTRATE 10 MG TABLET PO SCH (22:08)
[2018-11-08] MEDS: IV NS 0.9% 1,000 ML IV PRN (00:42)
[2018-11-08] MEDS: PIPERACILLIN /TAZOBACTAM 3.375 G in IV D5W 100 ML IV SCH ×3 (01:27→17:08)
--- NOTE | 2018-11-08 01:30 | NUR ---
RN NOTES Patient sleeping comfortable. Not in any distress. IV zosyn administered
[2018-11-08 06:25] LABS: BASOPHILS % (AUTO) 0.4 % (0.0-2.0); EOSINOPHILS % (AUTO) 0.4 % (0.0-6.0); HEMATOCRIT 41 % (33-45); HEMOGLOBIN 13.9 g/dL (11.5-14.8); LYMPHOCYTES # (AUTO) 1.9 /CMM (0.8-4.8); LYMPHOCYTES % (AUTO) 17.3 % (20.0-44.0); MEAN CORPUSCULAR HGB CONC 34 g/dl (31.0-36.0); MEAN CORPUSCULAR VOLUME 91 fL (82-100); MONOCYTES % (AUTO) 9.4 % (2.0-12.0); NEUTROPHILS # (AUTO) 7.8 /CMM (1.8-8.9); NEUTROPHILS % (AUTO) 72.5 % (43.0-81.0); PLATELET COUNT (AUTO) 446 /CMM (150-450); RED BLOOD CELL COUNT(AUTO) 4.51 MIL/uL (4.0-5.2); WHITE BLOOD COUNT (AUTO) 10.8 K/uL (4.3-11.0)
[2018-11-08 06:41] LABS: CALCIUM, SERUM 8.5 mg/dL (8.5-10.1); CARBON DIOXIDE 25 mmol/L (21-32); CHLORIDE 100 mmol/L (98-107); CREATININE 0.8 mg/dL (0.6-1.3); GLUCOSE 92 mg/dL (74-106); MAGNESIUM 2.6 mg/dL (1.8-2.4); PHOSPHORUS 2.3 mg/dL (2.5-4.9); SODIUM SERUM 136 mmol/L (136-145); UREA NITROGEN, BLOOD 9 mg/dL (7-18)
[2018-11-08 08:00] VITALS: BP 134/86
[2018-11-08] MEDS: LIPASE/PROTEASE/AMYLASE 1 EACH CAPSULE.DR PO SCH ×3 (08:51→17:11)
[2018-11-08] MEDS: LOSARTAN POTASSIUM 50 MG TABLET PO SCH (08:51)
[2018-11-08] MEDS: CARBIDOPA/LEVODOPA 25/100 MG 1 UDTAB PO SCH ×2 (08:51→17:08)
[2018-11-08] MEDS: AMLODIPINE BESYLATE 5 MG TABLET PO SCH (08:52)
[2018-11-08] MEDS: ATENOLOL 25 MG TABLET PO SCH ×2 (08:52→17:00)
[2018-11-08] MEDS: EZETIMIBE 10 MG TABLET PO SCH (08:52)
--- NOTE | 2018-11-08 10:00 | NUR ---
PT C/O CONSTIPATION AND REQUESTS FOR DULCOLAX SUPPOSITORY.INFORMED LU MCKEON WHO STATED HE WILL CHECK ON IT.
[2018-11-08] MEDS ORDERED: NEUTRA PHOS 1 POWD.PACKET PO ONE (11:30)
[2018-11-08 16:00] VITALS: BP 110/65
--- NOTE | 2018-11-08 19:10 | NUR ---
MS RN OPENING NOTES Received patient, A/O x 4, awake on bed. With on going IV ATB infusing well as ordered. On RA, no SOB/respiratory distress noted. Patient denies discomfort at this time. Kept bed low and locked. Call light within easy reach. Will continue to monitor accordingly.
--- NOTE | 2018-11-08 19:25 | NUR ---
PT RESTING IN BED WITH ONGOING ZOSYN IV INFUSING AT 25 ML/HR INFUSING WELL.DENIES ANY PAIN OR DISTRESS.PT AMBULATED ALONG THE HALLWAY 6X TODAY WITH AND HER BEST FRIEND.TOLERATING WELL.
[2018-11-08 20:00] VITALS: BP 106/66
[2018-11-08] MEDS: ZOLPIDEM TARTRATE 10 MG TABLET PO SCH (21:23)
[2018-11-08] MEDS: NORTRIPTYLINE HCL 10 MG CAPSULE PO SCH (21:23)
[2018-11-09] MEDS: PIPERACILLIN /TAZOBACTAM 3.375 G in IV D5W 100 ML IV SCH ×3 (02:05→17:59)
--- NOTE | 2018-11-09 06:40 | NUR ---
MS RN CLOSING NOTES Patient noted intermittently asleep, easily awaken by stimuli. Noted ambulatory with standby assist. Able to attend personal needs independently. Noted taking oral fluids adequately. With optimal urine output, no BM noted. Due meds given as ordered. All nursing needs attended. Kept bed low and locked. Call light within easy reach. Endorsed to the next shift.
[2018-11-09 07:50] LABS: CALCIUM, SERUM 8.5 mg/dL (8.5-10.1); CARBON DIOXIDE 20 mmol/L (21-32); CHLORIDE 100 mmol/L (98-107); CREATININE 0.9 mg/dL (0.6-1.3); GLUCOSE 85 mg/dL (74-106); PHOSPHORUS 2.2 mg/dL (2.5-4.9); POTASSIUM 3.8 mmol/L (3.5-5.1); SODIUM SERUM 132 mmol/L (136-145); UREA NITROGEN, BLOOD 6 mg/dL (7-18)
[2018-11-09 08:00] VITALS: BP 121/74
[2018-11-09 08:17] LABS: BASOPHILS % (AUTO) 0.4 % (0.0-2.0); EOSINOPHILS % (AUTO) 0.6 % (0.0-6.0); HEMATOCRIT 41 % (33-45); LYMPHOCYTES # (AUTO) 1.8 /CMM (0.8-4.8); LYMPHOCYTES % (AUTO) 16.1 % (20.0-44.0); MEAN CORPUSCULAR HGB CONC 34 g/dl (31.0-36.0); MEAN CORPUSCULAR VOLUME 91 fL (82-100); NEUTROPHILS % (AUTO) 73.9 % (43.0-81.0); PLATELET COUNT (AUTO) 466 /CMM (150-450); RED BLOOD CELL COUNT(AUTO) 4.51 MIL/uL (4.0-5.2); WHITE BLOOD COUNT (AUTO) 10.9 K/uL (4.3-11.0)
[2018-11-09] MEDS: EZETIMIBE 10 MG TABLET PO SCH (09:32)
[2018-11-09] MEDS: CARBIDOPA/LEVODOPA 25/100 MG 1 UDTAB PO SCH ×2 (09:32→17:59)
[2018-11-09] MEDS: AMLODIPINE BESYLATE 5 MG TABLET PO SCH (09:33)
[2018-11-09] MEDS: LOSARTAN POTASSIUM 50 MG TABLET PO SCH (09:34)
[2018-11-09] MEDS: LIPASE/PROTEASE/AMYLASE 1 EACH CAPSULE.DR PO SCH ×3 (09:34→17:59)
[2018-11-09] MEDS: ATENOLOL 25 MG TABLET PO SCH ×2 (09:36→18:00)
[2018-11-09] MEDS: NEUTRA PHOS 1 POWD.PACKET PO ONE ×2 (12:00→12:01)
--- NOTE | 2018-11-09 15:06 | NUR ---
REFUSED NEUTRA PHOSPHORUS POWDER PO AND MADE 4 ATTEMPTS OF PERSUADING THE PT TO TAKE IT INSPITE OF EXPLAINING ITS RISKS AND BENEFITS-PT INSISTS TO REFUSE. AT BEDSIDE AWARE.
[2018-11-09] MEDS: IV NS 0.9% 1,000 ML IV PRN (15:37)
[2018-11-09 16:00] VITALS: BP 122/71
--- NOTE | 2018-11-09 18:00 | NUR ---
RESTING IN BED COMFORTABLY WITH NO C/O PAIN OR DISTRESS.CALL LIGHT PLACED WITHIN REACH.
[2018-11-09 20:00] VITALS: BP 128/75
--- NOTE | 2018-11-09 20:02 | NUR ---
RN MS OPENING NOTES RECEIVED BED SIDE REPORT, PT IN BED, AWAKE ALERT ORIENTEDX4, FRIEND AT BEDSIDE. BREATHING EVEN AND UNLABORED ON ROOM AIR. NO COMPLAIN OF PAIN OR DISCOMFORT AT THIS TIMES, IV ACCESS ON THE HAND 22G WITH NS@75ML/HR AND TOLERATING. BED IN LOWEST LOCKED POSITION, CALL LIGHT WITHIN REACH AT ALL TIMES, WILL CONTINUE TO MONITOR
[2018-11-09] MEDS: ZOLPIDEM TARTRATE 10 MG TABLET PO SCH (22:01)
[2018-11-09] MEDS: NORTRIPTYLINE HCL 10 MG CAPSULE PO SCH (22:01)
[2018-11-10] MEDS: PIPERACILLIN /TAZOBACTAM 3.375 G in IV D5W 100 ML IV SCH ×2 (01:56→09:15)
--- NOTE | 2018-11-10 06:24 | NUR ---
RN MS CLOSING NOTES PT REMAINS IN BED, SLEEPING, AROUSED EASILY TO NAME CALL. BREATHING EVEN AND UNLABORED ON ROOM AIR. NO COMPLAIN OF PAIN OR DISCOMFORT AT THIS TIMES, IV ACCESS ON THE HAND 22G WITH NS@75ML/HR AND TOLERATING. BED IN LOWEST LOCKED POSITION, CALL LIGHT WITHIN REACH AT ALL TIMES, WILL ENDORSE TO DAY NURSE FOR CINTHIA
[2018-11-10 07:15] LABS: CALCIUM, SERUM 9.3 mg/dL (8.5-10.1); CARBON DIOXIDE 25 mmol/L (21-32); CHLORIDE 103 mmol/L (98-107); CREATININE 0.9 mg/dL (0.6-1.3); GLUCOSE 103 mg/dL (74-106); PHOSPHORUS 2.2 mg/dL (2.5-4.9); SODIUM SERUM 138 mmol/L (136-145); UREA NITROGEN, BLOOD 11 mg/dL (7-18)
--- NOTE | 2018-11-10 08:00 | NUR ---
MS RN OPENING NOTES Received patient in bed, alert, oriented x 4. Breathing even and unlabored. Not in any distress. No complaints at this time. Peripheral IV infusing at 75mL/hr. Call light within reach. Bed in low, locked position. With BRP-min assist and made 3 soft BM after administering Dulcolax 1 suppository NC with effective result. Will continue to monitor accordingly
[2018-11-10] MEDS ORDERED: BISACODYL SUPP (10 MG) 10 MG/SUPP.RECT SUPP.RECT RC PRN (08:30)
[2018-11-10 08:38] VITALS: BP 131/77
[2018-11-10] MEDS: LIPASE/PROTEASE/AMYLASE 1 EACH CAPSULE.DR PO SCH ×2 (08:46→13:08)
[2018-11-10] MEDS: EZETIMIBE 10 MG TABLET PO SCH (08:46)
[2018-11-10] MEDS: ATENOLOL 25 MG TABLET PO SCH (08:46)
[2018-11-10 08:47] VITALS: BP 131/77
[2018-11-10] MEDS: LOSARTAN POTASSIUM 50 MG TABLET PO SCH (08:47)
[2018-11-10] MEDS: CARBIDOPA/LEVODOPA 25/100 MG 1 UDTAB PO SCH (08:47)
[2018-11-10] MEDS: AMLODIPINE BESYLATE 5 MG TABLET PO SCH (08:47)
--- NOTE | 2018-11-10 14:30 | NUR ---
DISCHARGE INSTRUCTIONS AND MED TEACHING GIVEN TO THE PT.IV H/L REMOVED TO RT HAND WITH NO BLEEDING NOTED.DC INSTRUCTIONS TO F/U WITH DR DANIELE OCHOA (SURGEON) FOR GI FOLLOW UP.PT TOLERATED WELL.DISCHARGED HOME WITH STABLE V/S ACCOMPANIED BY HER COLE.
== END 2018-11-10 14:36 | disposition home or self-care (01) | DRG 392 ==
LOC: ER 20:40 → MED 23:41
PROVIDERS: ADMIT Family Medicine; ATTEND Family Medicine
DX: K57.32 Diverticulitis of large intestine without perforation or abscess without bleeding (principal); E87.1 Hypo-osmolality and hyponatremia; I25.10 Atherosclerotic heart disease of native coronary artery without angina pectoris; I10 Essential (primary) hypertension; E83.41 Hypermagnesemia; D72.829 Elevated white blood cell count, unspecified; E78.5 Hyperlipidemia, unspecified; G20 Parkinson's disease; Z87.891 Personal history of nicotine dependence; Z86.73 Personal history of transient ischemic attack (TIA), and cerebral infarction without residual deficits; Z95.5 Presence of coronary angioplasty implant and graft; Z79.82 Long term (current) use of aspirin; E86.1 Hypovolemia; E66.3 Overweight; Z68.26 Body mass index [BMI] 26.0-26.9, adult; D47.3 Essential (hemorrhagic) thrombocythemia; Z87.11 Personal history of peptic ulcer disease; R94.6 Abnormal results of thyroid function studies
CPT/HCPCS: 36415; 80048-TC; 80061-TC; 80076-TC; 81000-TC; 83690-TC; 83735-TC; 84100-TC; 84439-TC; 84443-TC; 84484-TC; 85025-TC; 87081-TC; G0378; J1170; J2270; J2543; J7030; J7060